=== PATIENT | male | born 1990 | race Caucasian/White ===

== ENCOUNTER 2017-05-23 16:17 | Emergency (ER) | payer SELFPAY ==
[~2017-05-23] VITALS: Ht 195.6 cm; Wt 61.0 kg
[2017-05-23] MEDS ORDERED: KETOROLAC TROMETHAMINE 60 MG/2 ML VIAL IM ONE (17:30)
[2017-05-23] MEDS ORDERED: CYCLOBENZAPRINE HCL 10 MG TABLET PO ONE (17:30)
[2017-05-23 17:49] VITALS: BP 147/68
== END 2017-05-23 17:51 | disposition home or self-care (01) ==
LOC: EMS 16:18
DX: M62.838 Other muscle spasm (principal); F17.210 Nicotine dependence, cigarettes, uncomplicated; F12.10 Cannabis abuse, uncomplicated
CPT/HCPCS: 96372; 99283; 99406; J1885